=== PATIENT | male | born 1935 | race Caucasian/White ===

== ENCOUNTER 2017-08-10 11:49 | Emergency (ER) | payer MEDICARE ==
[2017-08-10 12:09] VITALS: BP 183/65
[2017-08-10] MEDS ORDERED: BACITRACIN OINT TOP STA (13:23)
--- NOTE | 2017-08-10 13:26 | ED Physician Documentation ---
History of Present Illness - Stated complaint Stated Complaint: BURN R KNEE - Chief complaint Chief Complaint: Burn - History obtained from History obtained from: Patient, Family - History of Present Illness Timing: How many weeks ago (1.5) Pain level max: 0 Pain level now: 0 Improved by: neosporin Worsened by: nothing - Additonal information Additional information: burned his knee 1 week ago in [place] and here for wound check. His PCP placed him on clindamycin. Patient with no complaints. Review of Systems Constitutional: denies: Fever, Chills Skin: denies: Rash PD PAST MEDICAL HISTORY - Past Medical History Past Medical History: Yes Cardiovascular: Hypertension Endocrine/Autoimmune: Type 2 diabetes : Incontinence Psych: Anxiety Other Past Medical History: hx of prostate cancer, hx of TB - Past Surgical History Past Surgical History: Yes - Allergies Allergies/Adverse Reactions: Allergies Allergy/AdvReac Type Severity Reaction Status Date / Time Penicillins Allergy Hives Verified 08/10/17 12:09 Sulfa (Sulfonamide Allergy Rash Verified 08/10/17 12:09 Antibiotics) - Social History Does the pt smoke?: No Smoking Status: Never smoker Does the pt drink ETOH?: No Does the pt have substance abuse?: No - Immunizations Immunizations are current?: Yes - POLST Patient has POLST: No PD ED PE NORMAL - Vitals Vital signs reviewed: Yes - General General: Alert and oriented X 3, No acute distress - Derm Derm: Warm and dry - Neuro Neuro: Alert and oriented X 3 - Psych Psych: Normal mood, Normal affect PD ED PE EXPANDED - Extremities LEON LE visual: 1 - tenderness (3 x 4 cm partial-thickness burn. No surrounding evidence of infection. No drainage.) Results - Vitals Vitals: Vital Signs - 24 hr 08/10/17 12:04 Temperature 36.3 C L Heart Rate 70 Respiratory 20 Rate Blood Pressure 183/65 H O2 Saturation 97 Oxygen O2 Source Room air PD MEDICAL DECISION MAKING - ED course Complexity details: considered differential, d/w patient, d/w family ED course: Patient is an 82-year-old male who presents to the emergency department with a hot water burn from soup 1 week ago, he is visiting from [place]. It does not appear infected at this time. His doctor had placed him on clindamycin and will have him finish this. The wound was dressed with Mepitel and the emergency department as well as bacitracin. We will have him follow-up with his PCP when he returns home. Warnings of infection and instructions on wound care given at bedside. Also counseled on how to minimize scarring. Patient and family counseled regarding signs and symptoms for which I believe and urgent re- evaluation would be necessary. Patient with good understanding of and agreement to plan and is comfortable going home at this time This document was made in part using voice recognition software. While efforts are made to proofread this document, sound alike and grammatical errors may occur. Departure - Departure Disposition: 01 Home, Self Care Clinical Impression: Burn Condition: Good Instructions: ED Burn Scald, ED Bandage Change Follow-Up: your,doctor in 1 week [Other] Comments: Return if you worsen. Leave the mepitel in place for 1 week. Change the outer dressing. Apply antibiotic ointment twice daily.
== END 2017-08-10 13:40 | disposition home or self-care (01) ==
LOC: ED 11:49
DX: T24.221A Burn of second degree of right knee, initial encounter (principal); T31.0 Burns involving less than 10% of body surface; X12.XXXA Contact with other hot fluids, initial encounter; I10 Essential (primary) hypertension; E11.9 Type 2 diabetes mellitus without complications; Z85.46 Personal history of malignant neoplasm of prostate
CPT/HCPCS: 16020; 99281; 99282

== ENCOUNTER 2017-11-19 18:29 | Outpatient (CLI) | payer MEDICARE, OTHER ==
--- NOTE | 2017-11-19 22:46 | Ultrasound Preliminary Report ---
Exam: US CAROTID DOPPLER COMPLETE IMPRESSION: 1. There is mild heterogeneous atheromatous plaque at the left carotid bifurcation. There is minimal plaque within the right internal carotid artery. 2. Mildly elevated velocities within the bilateral internal carotid arteries but no evidence of hemod ynamically significant carotid artery stenosis. 3. Bilateral vertebral artery flow is antegrade. Validated velocity measurements with angiographic measurements and velocity criteria are extrapolated from diameter data as defined by the Society of Radiologists in Ultrasound Consensus Conference Radi ology 2003; 229;340-346. SITE ID: [id number]
--- NOTE | 2017-11-19 23:00 | Ultrasound Report ---
EXAM: CAROTID DOPPLER ULTRASOUND EXAM DATE: 11/19/2017 08:00 PM. CLINICAL HISTORY: Occlusion and stenosis of bilateral carotid artery. COMPARISON: None. TECHNIQUE: Real-time sonographic vascular imaging was performed by the school manager through the [employer] arterial system with a linear transducer utilizing color-flow, Doppler flow and spectral analysis. Multiple congressional representative static images were saved for review. FINDINGS: Right: RCCA Prox: PSV 114.1 cm/sec. RCCA Dist: PSV 107.8 cm/sec, EDV 13.2 cm/sec. RECA: PSV 139.1 cm/sec. R Bulb: PSV 83.5 cm/sec, EDV 8.3 cm/sec, ICA/CCA ratio 0.8. TIFFANY Prox: PSV 126.6 cm/sec, EDV 20.2 cm/sec, ICA/CCA ratio 1.2. TIFFANY Mid: PSV 144.6 cm/sec, EDV 27.8 cm/sec, ICA/CCA ratio 1.3. TIFFANY Dist: PSV 149.3 cm/sec, EDV 23.2 cm/sec, ICA/CCA ratio 1.4. RVA: PSV 133 cm/sec. RVA flow direction: Antegrade. Left: LCCA Prox: PSV 138.1 cm/sec. LCCA Dist: PSV 128.8 cm/sec, EDV 11.1 cm/sec. LECA: PSV 188.2 cm/sec. L Bulb: PSV 135.3 cm/sec, EDV 1.9 cm/sec, ICA/CCA ratio 1.1. LICA Prox: PSV 133.5 cm/sec, EDV 17.6 cm/sec, ICA/CCA ratio 1.0. LICA Mid: PSV 128.8 cm/sec, EDV 26.9 cm/sec, ICA/CCA ratio 1.0. LICA Dist: PSV 137.2 cm/sec, EDV 27.8 cm/sec, ICA/CCA ratio 1.1. LVA: PSV 78.8 cm/sec. LVA flow direction: Antegrade. Other: None. IMPRESSION: 1. There is mild heterogeneous atheromatous plaque at the left carotid bifurcation. There is minimal plaque within the right internal carotid artery. 2. Mildly elevated velocities within the bilateral internal carotid arteries but no evidence of hemod ynamically significant carotid artery stenosis. 3. Bilateral vertebral artery flow is antegrade. Validated velocity measurements with angiographic measurements and velocity criteria are extrapolated from diameter data as defined by the Society of Radiologists in Ultrasound Consensus Conference Radi ology 2003; 229;340-346. [facility] The call report notification system was initiated by Dr. Marie Alonzo at 20:16 hrs on 11/19/17. The above findings were discussed with Justen Truong by Dr. Marie Alonzo at 20:30 Hrs on 11/19/17. Referring Provider Line: [phone] SITE ID: [id number]
== END 2017-11-19 18:30 | disposition home or self-care (01) ==
LOC: DI 18:29
PROVIDERS: ATTEND Specialist
DX: I65.23 Occlusion and stenosis of bilateral carotid arteries (principal)
CPT/HCPCS: 93880